=== PATIENT | female | born 1995 | race Caucasian/White ===

== ENCOUNTER 2021-04-14 08:00 | Outpatient (CLI) | payer OTHER ==
[2021-04-14 21:30] LABS: BACTERIAL VAGINOSIS DNA NEGATIVE (NEGATIVE); CANDIDA GLABRATA DNA NEGATIVE (NEGATIVE); CANDIDA GROUP DNA NEGATIVE (NEGATIVE); CANDIDA KRUSEI DNA NEGATIVE (NEGATIVE); TRICHOMONAS VAGINALIS DNA NEGATIVE (NEGATIVE)
== END 2021-04-14 23:59 | disposition home or self-care (01) ==
LOC: LAB.N 08:00
PROVIDERS: ATTEND Family Medicine
DX: R30.0 Dysuria (principal)
CPT/HCPCS: 87086; 87661; 87801

== ENCOUNTER 2021-08-01 07:28 | Outpatient (CLI) | payer OTHER ==
[2021-08-02 06:10] LABS: HCV AB 0.1 s/co ratio (0.0-0.9)
[2021-08-02 07:10] LABS: HIV SCREEN 4TH GENERATION Non Reactive (Non Reactive)
== END 2021-08-01 07:29 | disposition home or self-care (01) ==
LOC: LAB.N 07:28
PROVIDERS: ATTEND Family Medicine
DX: Z20.9 Contact with and (suspected) exposure to unspecified communicable disease (principal)
CPT/HCPCS: 36415; 86704; 86803; 87389

== ENCOUNTER 2021-09-11 11:39 | Outpatient (CLI) | payer OTHER ==
[2021-09-13 06:09] LABS: HCV AB 0.2 s/co ratio (0.0-0.9); HIV SCREEN 4TH GENERATION Non Reactive (Non Reactive)
== END 2021-09-11 11:40 | disposition home or self-care (01) ==
LOC: LAB.N 11:39
PROVIDERS: ATTEND Family Medicine
DX: Z20.9 Contact with and (suspected) exposure to unspecified communicable disease (principal)
CPT/HCPCS: 36415; 86704; 86803; 87389

== ENCOUNTER 2021-10-22 08:00 | Outpatient (CLI) | payer OTHER ==
[2021-10-22 22:37] LABS: BACTERIAL VAGINOSIS DNA NEGATIVE (NEGATIVE); CANDIDA GLABRATA DNA NEGATIVE (NEGATIVE); CANDIDA GROUP DNA NEGATIVE (NEGATIVE); CANDIDA KRUSEI DNA NEGATIVE (NEGATIVE); TRICHOMONAS VAGINALIS DNA NEGATIVE (NEGATIVE)
== END 2021-10-22 23:59 | disposition home or self-care (01) ==
LOC: LAB.WC 08:00
PROVIDERS: ATTEND Nurse Practitioner
DX: N89.8 Other specified noninflammatory disorders of vagina (principal); Z13.29 Encounter for screening for other suspected endocrine disorder; Z13.1 Encounter for screening for diabetes mellitus; L02.91 Cutaneous abscess, unspecified
CPT/HCPCS: 36415; 81514; 83036; 84439; 84443; 87070; 87205

== ENCOUNTER 2021-10-22 10:12 | Outpatient (CLI) | payer OTHER ==
[2021-10-22 10:56] LABS: THYROID STIMULATING HORMONE 2.06 uIU/mL (0.34-5.60)
[2021-10-22 10:59] LABS: FREE T4 (FREE THYROXINE) 0.72 ng/dL (0.58-1.64)
[2021-10-22 13:28] LABS: ESTIMATED AVERAGE GLUCOSE 88 mg/dL (70-100); HEMOGLOBIN A1c% 4.7 % (4.27-6.07)
== END 2021-10-22 10:13 | disposition home or self-care (01) ==
LOC: LAB 10:12
PROVIDERS: ATTEND Nurse Practitioner
DX: Z13.29 Encounter for screening for other suspected endocrine disorder (principal); Z13.1 Encounter for screening for diabetes mellitus
CPT/HCPCS: 36415; 83036; 84439; 84443

== ENCOUNTER 2021-11-30 08:00 | Outpatient (CLI) | payer OTHER | END 2021-11-30 23:59 | disposition home or self-care (01) | LOC: LAB.N 08:00 | PROVIDERS: ATTEND Physician Assistant | DX: R93.89 Abnormal findings on diagnostic imaging of other specified body structures (principal) | CPT/HCPCS: 36415; 84443 ==

== ENCOUNTER 2021-12-11 07:02 | Outpatient (CLI) | payer OTHER ==
--- NOTE | 2021-12-11 08:36 | Ultrasound Report ---
PROCEDURE: Head or Neck Soft Tissue INDICATIONS: NECK COMPLAINTS TECHNIQUE: Real-time scanning was performed of the thyroid gland, with image documentation. COMPARISON: None FINDINGS: Right: Thyroid lobe measures 4.4 x 1.3 x 1.6 cm, and is homogeneous in echotexture. Left: Thyroid lobe measures 4.3 x 1.3 x 1.6 cm, and is homogenous in echotexture. Isthmus: 2.3 mm thick. Nodule number: One Location: Lower pole left thyroid lobe. Size: 0.7 x 0.5 x 0.6 cm. Composition: Solid Echogenicity: Hypoechoic Shape: wider than tall. Margins: Smooth Echogenic foci: None Total points: 4 ACR TI-RADS category: Moderately suspicious. IMPRESSION: Single subcentimeter moderately suspicious nodule in lower pole left thyroid lobe as urszula cribed above. No specific follow-up is indicated. No neck soft tissue lymphadenopathy. ACR TI-RADS definitions and recommendations: TI-RADS 1 (benign): 0 points. FNA not needed. TI-RADS 2 (not suspicious): 2 points. FNA not needed. TI-RADS 3 (mildly suspicious): 3 points. "FNA if 2.5 cm or larger, follow up if 1.5 cm or larger (at 1, 3, and 5 years). TI-RADS 4 (moderately suspicious): 4-6 points. "FNA if 1.5 cm or larger, follow up if 1 cm or larger (at 1, 2, 3, and 5 years). TI-RADS 5 (highly suspicious): 7 points or more. "FNA if 1 cm or larger, follow up if 0.5 cm or larger (every year for 5 years). Reviewed by: Chuck Winston MD on 12/11/2021 8:34 AM PDT Approved by: Chuck Winston MD on 12/11/2021 8:34 AM PDT Station ID: [id number]
== END 2021-12-11 07:03 | disposition home or self-care (01) ==
LOC: DI 07:02
PROVIDERS: ATTEND Physician Assistant
DX: E04.1 Nontoxic single thyroid nodule (principal)

== ENCOUNTER 2021-12-16 18:26 | Emergency (ER) | payer OTHER ==
--- NOTE | 2021-12-16 21:10 | ED Physician Documentation ---
PD HPI UPPER EXT INJURY - Stated complaint Stated Complaint: FINGER LAC - Chief complaint Chief Complaint: Laceration - History obtained from History obtained from: Patient - Additonal information Additional information: Otherwise healthy 26-year-old woman who is right-hand dominant cut her right pinky finger on a can of corn at home just prior to arrival. She is up-to-date on tetanus. Review of Systems Constitutional: reports: Reviewed and negative Eyes: reports: Reviewed and negative Ears: reports: Reviewed and negative PD PAST MEDICAL HISTORY - Past Medical History Past Medical History: No - Past Surgical History Past Surgical History: No - Present Medications Home Medications: Ambulatory Orders Medication Instructions Recorded Confirmed No Known Home Medications 12/16/21 12/16/21 - Allergies Allergies/Adverse Reactions: Allergies Allergy/AdvReac Type Severity Reaction Status Date / Time No Known Drug Allergies Allergy Verified 12/16/21 19:00 - Social History Does the pt smoke?: No Smoking Status: Never smoker Does the pt drink ETOH?: No Does the pt have substance abuse?: No - Immunizations Immunizations are current?: Yes PD ED PE NORMAL - Vitals Vital signs reviewed: Yes - General General: Alert and oriented X 3, No acute distress - Derm Derm: Normal color, Warm and dry - Extremities Extremities: Other (On the ulnar side of the right pinky pulp there is a 1 cm laceration just abutting the medial nail but not involving the nail. No distal neurovascular compromise.) - Neuro Neuro: Alert and oriented X 3, Normal speech Results - Vitals Vitals: Vital Signs - 24 hr 12/16/21 19:00 Temperature 36.3 C L Heart Rate 71 Respiratory 16 Rate Blood Pressure 148/95 H O2 Saturation 100 Oxygen O2 Source Room air Procedures - Laceration (location) Right fifth finger Length in cm: 1 Wound type: Linear, Into subcut fat Neurovascular status: Sensory intact, Motor intact, Vascular intact Anesthesia: Lidocaine 1% (Digital block with excellent anesthesia) Wound preparation: Irrigated copiously NS Skin layer closure: Nylon, Interrupted, Size #-0 - enter number (5-0), Sutures - enter # (3) Other: Tetanus UTD Departure - Departure Disposition: 01 Home, Self Care Clinical Impression: Finger laceration Qualifiers: Encounter type: initial encounter Finger: little finger Damage to nail status: without damage Foreign body presence: without foreign body Laterality: right Qualified Code(s): S64.216A - Laceration without foreign body of right little finger without damage to nail, initial encounter Condition: Good Record reviewed to determine appropriate education?: Yes Instructions: ED Laceration Hand Comments: Come back for any signs of infection which would include: Redness, swelling, drainage, increased pain, or fevers. You can wash it soap and water. Keep it covered and moist with bacitracin ointment which is available over the counter; avoid neosporin. Follow-up with your physician in 14 days for suture removal.
[2021-12-16 21:51] VITALS: BP 132/81
== END 2021-12-16 21:50 | disposition home or self-care (01) ==
LOC: ED 18:26
DX: S61.216A Laceration without foreign body of right little finger without damage to nail, initial encounter (principal); W26.8XXA Contact with other sharp object(s), not elsewhere classified, initial encounter; Y92.009 Unspecified place in unspecified non-institutional (private) residence as the place of occurrence of the external cause
CPT/HCPCS: 12001; 99281

== ENCOUNTER 2021-12-21 18:40 | Emergency (ER) | payer OTHER ==
[2021-12-21 18:49] VITALS: BP 135/87
[2021-12-21] MEDS ORDERED: cephALEXin 250 MG CAPSULE PO STA (19:40)
--- NOTE | 2021-12-21 19:53 | ED Physician Documentation ---
PD HPI WOUND RECHECK - Stated complaint Stated Complaint: R FINGER SWOLLEN - Chief complaint Chief Complaint: Wound - Histroy obtained from History obtained from: Patient - History of Present Illness Pain level max: 1 Pain level now: 1 Associated symptoms: No: Fever, Drainage - Additional information Additional information: Patient is a 26-year-old female who presents to the emergency department with a right fifth digit laceration that was repaired several days ago. 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 Minimal pain. No drainage. No fever. Nothing makes it better or worse. She is concerned about potential infection. Review of Systems Constitutional: denies: Fever : denies: Now [facility] PD PAST MEDICAL HISTORY - Past Medical History Past Medical History: No - Past Surgical History Past Surgical History: No - Present Medications Home Medications: Ambulatory Orders Medication Instructions Recorded Confirmed cephALEXin [Keflex] 500 mg PO Q6H #28 cap 12/21/21 - Allergies Allergies/Adverse Reactions: Allergies Allergy/AdvReac Type Severity Reaction Status Date / Time No Known Drug Allergies Allergy Verified 12/21/21 18:48 - Social History Does the pt smoke?: No Smoking Status: Never smoker Does the pt drink ETOH?: No Does the pt have substance abuse?: No - Immunizations Immunizations are current?: Yes PD ED PE NORMAL - Vitals Vital signs reviewed: Yes - General General: Alert and oriented X 3, No acute distress - HEENT HEENT: Moist mucous membranes - Derm Derm: Warm and dry - Extremities Extremities: Other (Right fifth digit with sutures in place. Mild erythema. No drainage. Mild swelling.) - Neuro Neuro: Alert and oriented X 3 Results - Vitals Vitals: Vital Signs - 24 hr 12/21/21 18:44 Temperature 36.4 C L Heart Rate 82 Respiratory 14 Rate Blood Pressure 135/87 H O2 Saturation 100 Oxygen O2 Source Room air PD MEDICAL DECISION MAKING - ED course Complexity details: considered differential, d/w patient ED course: 26-year-old female with a right fifth digit laceration that has been previously repaired. Possible early cellulitis. Will cover with antibiotics. NVI Patient is well-appearing, nontoxic. Afebrile. Patient counseled regarding signs and symptoms for which I believe and urgent re-evaluation would be necessary. Patient with good understanding of and agreement to plan and is comfortable going home at this time This document was made in part using voice recognition software. While efforts are made to proofread this document, sound alike and grammatical errors may occur. Departure - Departure Disposition: 01 Home, Self Care Clinical Impression: Cellulitis Qualifiers: Site of cellulitis: extremity Site of cellulitis of extremity: upper extremity Laterality: right Qualified Code(s): L03.113 - Cellulitis of right upper limb Condition: Good Instructions: ED Infec Skin Cellulitis Follow-Up: your,doctor in 1 week for suture removal [Other] Prescriptions: cephALEXin [Keflex] 500 mg PO Q6H #28 cap Comments: Please follow up with your doctor for further care and suture removal. Take all antibiotics until gone. your prescription was sent to [facility] in [place]. Discharge Date/Time: 12/21/21 19:55
== END 2021-12-21 19:55 | disposition home or self-care (01) ==
LOC: ED 18:40
DX: S61.216A Laceration without foreign body of right little finger without damage to nail, initial encounter (principal); L03.011 Cellulitis of right finger; X58.XXXA Exposure to other specified factors, initial encounter
CPT/HCPCS: 99282; A9270

== ENCOUNTER 2022-12-16 16:27 | Outpatient (CLI) | payer BC, OTHER ==
[2022-12-18 06:11] LABS: ESTRADIOL 31.4 pg/mL (.); PROGESTERONE 0.2 ng/mL (.)
== END 2022-12-16 16:28 | disposition home or self-care (01) ==
LOC: LAB.N 16:27
PROVIDERS: ATTEND Physician Assistant
DX: R79.89 Other specified abnormal findings of blood chemistry (principal)
CPT/HCPCS: 36415; 82670; 83001; 83002; 84144; 84403

== ENCOUNTER 2022-12-21 07:15 | Outpatient (CLI) | payer BC, OTHER ==
--- NOTE | 2022-12-21 23:55 | Ultrasound Report ---
PROCEDURE: Head or Neck Soft Tissue INDICATIONS: THYROID NODULE TECHNIQUE: Real-time scanning was performed of the thyroid gland, with image documentation. COMPARISON: None FINDINGS: Right: Thyroid lobe measures 4.8 x 1.3 x 1.6 cm Left: Thyroid lobe measures 3.9 x 1.1 x 1.8 cm Isthmus: 3 mm thick. Nodule number: 1 Location: Left inferior thyroid Size: 0.6 x 0.3 x 0.5 cm, prior 0.7 x 0.5 x 0.6 cm. Composition: Solid. Echogenicity: Hypoechoic. Shape: wider than tall (0 points). Margins: Smooth. Echogenic foci: Punctate. Total points: 7 ACR TI-RADS category: 5 Nodule number: 2 Location: Right thyroid isthmus Size: 0.4 x 0.4 x 0.3 cm. Composition: Solid. Echogenicity: Hypoechoic. Shape: wider than tall (0 points). Margins: Smooth (0 points). Echogenic foci: None (0 points). Total points: 4 ACR TI-RADS category: 4 IMPRESSION: Thyroid nodules are seen. By published criteria, annual follow-up is recommended for a total of 5 years. ACR TI-RADS definitions and recommendations: TI-RADS 1 (benign): 0 points. FNA not needed. TI-RADS 2 (not suspicious): 2 points. FNA not needed. TI-RADS 3 (mildly suspicious): 3 points. "FNA if 2.5 cm or larger, follow up if 1.5 cm or larger (at 1, 3, and 5 years). TI-RADS 4 (moderately suspicious): 4-6 points. "FNA if 1.5 cm or larger, follow up if 1 cm or larger (at 1, 2, 3, and 5 years). TI-RADS 5 (highly suspicious): 7 points or more. "FNA if 1 cm or larger, follow up if 0.5 cm or larger (every year for 5 years). Reviewed by: Edi Archuleta MD on 12/21/2022 10:53 PM [facility] Approved by: Edi Archuleta MD on 12/21/2022 10:53 PM [facility] Station ID: [id number]
== END 2022-12-21 07:16 | disposition home or self-care (01) ==
LOC: DI 07:15
PROVIDERS: ATTEND Physician Assistant
DX: E04.2 Nontoxic multinodular goiter (principal)

== ENCOUNTER 2022-12-30 08:00 | Outpatient (CLI) | payer BC, OTHER | END 2022-12-30 23:59 | disposition home or self-care (01) | LOC: LAB.N 08:00 | PROVIDERS: ATTEND Registered Nurse | DX: R30.0 Dysuria (principal) | CPT/HCPCS: 87086 ==

== ENCOUNTER 2023-01-06 18:34 | Outpatient (CLI) | payer BC, OTHER ==
--- NOTE | 2023-01-07 10:57 | Ultrasound Report ---
PROCEDURE: Pelvic w/Transvaginal INDICATIONS: ELEVATED SERUM TESTOSTERONE TECHNIQUE: Real-time scanning was performed of the pelvic organs, with image documentation. Additional endovagi nal scanning was necessary due to incomplete visualization of the adnexal and endometrial structures by transabdominal scanning. COMPARISON: None. FINDINGS: Uterus: Uterus is anteverted and normal in size at 8 x 4 x 5.4 cm. The myometrium is homogeneous. The endometrium measures 9 mm in combined thickness. Ovaries: The right ovary measures 3.4 x 2.6 x 2.9 cm, with a calculated ovarian volume of 13.05 cc. The left ovary measures 3.9 x 1.8 x 2.5 cm, with a calculated ovarian volume of 9 cc. The ovaries h ave a normal sonographic appearance. Less than 12 follicles can be seen in each ovary. No adnexal m asses are seen. No cystic lesions measuring greater than 3 cm. Other: No pathologic free abdominal or pelvic fluid. IMPRESSION: Less than 12 follicles can be seen in each ovary. Reviewed by: Henry Conley on 01/07/2023 10:55 AM [facility] Approved by: Henry Conley on 01/07/2023 10:55 AM [facility] Station ID: [id number]
== END 2023-01-06 18:35 | disposition home or self-care (01) ==
LOC: DI 18:34
PROVIDERS: ATTEND Obstetrics & Gynecology
DX: R89.1 Abnormal level of hormones in specimens from other organs, systems and tissues (principal)